=== PATIENT | male | born 1955 | race Caucasian/White ===

== ENCOUNTER → 2022-08-13 10:06 | Outpatient (BNVA) | payer MEDICARE, SELFPAY | PROVIDERS: PCP Internal Medicine; Visit Provider Anesthesiology | DX: M96.1 Postlaminectomy syndrome, not elsewhere classified (principal); G89.4 Chronic pain syndrome | CPT/HCPCS: 99202 ==

== ENCOUNTER → 2022-09-01 11:11 | Outpatient (BNVA) | payer MEDICARE, SELFPAY | PROVIDERS: PCP Internal Medicine; Visit Provider Anesthesiology | DX: G89.4 Chronic pain syndrome (principal); M96.1 Postlaminectomy syndrome, not elsewhere classified | CPT/HCPCS: 99212 ==

== ENCOUNTER 2022-10-07 05:50 | Outpatient (REF) | payer MEDICARE, SELFPAY ==
--- NOTE | ~2022-10-07 | FL_ITS ---
EXAMINATION: XR FLUOROSCOPY WITH IMAGES CLINICAL INFORMATION: Chronic pain syndrome COMPARISON: None available. TECHNIQUE: Fluoroscopy Supervised By: Dr. Tashi Babin. Fluoroscopy Time: 0.4 minutes. Cumulative Dose: 7.03 mGy. DAP: 1.91 Gycm2. Images: 3. FINDINGS: Images demonstrate patient be status post previous lumbar spine intervention with pedicle screws and connecting rods. There appears to be a fracture of the left L3 screw which may be acute or chronic as we do not have any previous imaging on this patient for comparison. A needle is seen with contrast about the left lateral aspect of the left L5-S1 disc space. FL/FL guidance in treatment room IMPRESSION: Intraoperative fluoroscopy for pain management procedure. Fractured screw left L3 pedicle screw
== END 2022-10-07 05:51 | disposition home or self-care (01) ==
LOC: CF 05:50
PROVIDERS: Visit Provider Anesthesiology
DX: G89.4 Chronic pain syndrome (principal); M96.1 Postlaminectomy syndrome, not elsewhere classified
CPT/HCPCS: 64483; 64484; J3301

== ENCOUNTER → 2022-11-17 11:08 | Outpatient (BNVA) | payer MEDICARE, SELFPAY | PROVIDERS: PCP Internal Medicine; Visit Provider Anesthesiology | DX: G89.4 Chronic pain syndrome (principal); M96.1 Postlaminectomy syndrome, not elsewhere classified | CPT/HCPCS: 99212 ==

== ENCOUNTER 2023-03-10 06:04 | Outpatient (REF) | payer MEDICARE, SELFPAY ==
--- NOTE | ~2023-03-10 | FL_ITS ---
EXAMINATION: XR FLUOROSCOPY WITH IMAGES CLINICAL INFORMATION: Post laminectomy syndrome, not elsewhere classified. COMPARISON: None available. TECHNIQUE: Fluoroscopy Supervised By: Dr. Tashi Babin. Fluoroscopy Time: 0.3 minutes. Cumulative Dose: 6.16 mGy. DAP: 1.64 Gycm2. Images: 2. FINDINGS: Images demonstrate needle placement and contrast injection adjacent to the left lateral L5 vertebrae. FL/FL guidance in treatment room IMPRESSION: Cross B guidance for pain management procedure.
== END 2023-03-10 06:05 | disposition home or self-care (01) ==
LOC: CF 06:04
PROVIDERS: Visit Provider Anesthesiology
DX: M96.1 Postlaminectomy syndrome, not elsewhere classified (principal)
CPT/HCPCS: 64483; J3301

== ENCOUNTER 2023-03-10 09:52 | Outpatient (AMB) | payer MEDICARE, SELFPAY ==
--- NOTE | 2023-03-10 09:51 | MHC.OFFVIS ---
Intake Vital Signs 03/10/23 13:47 03/10/23 13:53 Height 5 ft 10 in 5 ft 10 in Weight 190 lb 190 lb BMI 27.3 27.3 BP 136/68 132/78 Blood Pressure Location Lt brachial Lt brachial Position Sitting Sitting Respiration 16 16 Pulse 66 92 Pulse Source Pulse Oximeter Pulse Oximeter Pulse Oximetry (%) 99 96 Oxygen Delivery Method Room Air Room Air Comment pre-op post-op Intake Visit Reasons: Left TFESI L5-S1 Allergies No Known Allergies Allergy (Verified 03/10/23 13:53) [facility] Medical History (Updated 08/13/22 @ 11:22 by Tashi Babin MD) Compression fracture of lumbar vertebra Depression Esophageal hiatal hernia Epilepsy Reflux esophagitis Type 2 diabetes mellitus Chronic back pain Surgical History (Updated 08/13/22 @ 10:42 by Anita Elkins RN) H/O lumbosacral spine surgery Physical Exam Vital Signs: Last Vital Signs Pulse 92 03/10/23 13:53 Resp 16 03/10/23 13:53 BP 132/78 03/10/23 13:53 Pulse Ox 96 03/10/23 13:53 Oxygen Delivery Method Room Air 03/10/23 13:53 BMI result Body Mass Index 27.3 Assessment & Plan Assessment & Plan (1) Failed back syndrome: Code(s): M96.1 - Postlaminectomy syndrome, not elsewhere classified Plan: LEFT Transforaminal L5-S1 epidural steroid injection Informed consent was thoroughly explained to the patient before the procedure.? The patient came to the operating room.? He was positioned prone on operating table with a pillow under his abdomen.? Time-out was performed delineating correct site and side of the procedure, nature of the injection, name and date of of the patient. The lower back of the patient was prepped with ChloraPrep and draped with sterile utility towels.? C-arm was brought over the operating field and sq picture of L5 vertebra was demonstrated on the screen.? Significant hardware occupying not only L3 and L2 vertebta with pedicular scews but also L4-L5 pedicular bilateral screws and rods were noted in the back. An attempt to perform L5- S1 TFESI was made as below: The left side was chosen as the side of the injection.? Tilting machine ipsilateral to the left at the level of L5 the most prominent picture of the left pedicle was obtained on the screen.?L5 pedicular screw was not completely shielding the image of the left pedicle and 3 mm below the level of the lowest point of the pedicle projection to the skin small amount of lidocaine 1% 3-4 cc was injected to anesthetize the skin.? After that 5 in 22 gauge Quincke point needle was inserted through the skin wheal and was advanced to the L5-S1 foramina on anterior posterior and oblique views intermittently.T when the needle reached the foramina on the lateral view the contast was injected and epidural spread of the contrast was seen. Treatment mixture of lidocaine 1% 3 mls and kenalog 40 mg was injected. Needle was removed. sterile bandaid was applied.. (2) Chronic pain syndrome: Code(s): G89.4 - Chronic pain syndrome Plan This patient is suffering from felt back or postlaminectomy syndrome. He received injections which were very instrumental for his pain control from Dr. Lozano. I offered this patient to repeat the injection doctor rising of performed for him. I will schedule him for transforaminal L4-5 and /or L5-S1 whichever side would be appearing better for needle insertion. However if this injection will not be helpful attempts can be made to treat this pain as failed back syndrome with spinal cord stimulator versus peripheral nerve stimulator. Possibility of intrathecal pump can be considered however the hardware insertion could be difficult. The hardware in his back extends to T10 vertebra therefore it is possible that spinal cord stimulator trial and insertion also will be difficult to perform. Patient was informed about it. Orders: Orders FL guidance in treatment room Today M96.1 - Postlaminectomy syndrome, not elsewhere classified Coding Level of Care Code Procedure Only Diagnoses Failed back syndrome M96.1 Chronic pain syndrome G89.4
[2023-03-10 13:47] VITALS: BP 136/68; PULSE 66; RESP 16; O2SAT 99; BMI 27.3
[2023-03-10 13:53] VITALS: BP 132/78; PULSE 92; RESP 16; O2SAT 96; BMI 27.3
== END 2023-03-10 10:49 | disposition home or self-care (01) ==
LOC: HO.PMCPRC 09:52
PROVIDERS: PCP Internal Medicine; Visit Provider Anesthesiology
DX: M96.1 Postlaminectomy syndrome, not elsewhere classified (principal); G89.4 Chronic pain syndrome
CPT/HCPCS: 64483

== ENCOUNTER 2023-03-31 09:59 | Outpatient (REF) | payer MEDICARE, SELFPAY | END 2023-03-31 10:00 | disposition home or self-care (01) | LOC: HO.XRAY 09:59 | PROVIDERS: PCP Internal Medicine; Visit Provider Anesthesiology | DX: M96.1 Postlaminectomy syndrome, not elsewhere classified (principal); G89.4 Chronic pain syndrome | CPT/HCPCS: 72070; 72100 ==

== ENCOUNTER 2023-04-15 09:58 | Outpatient (AMB) | payer MEDICARE, SELFPAY ==
--- NOTE | 2023-04-15 10:07 | MHC.OFFVIS ---
Intake Vital Signs 04/15/23 11:06 Height 5 ft 10 in Weight 182 lb BMI 26.1 BP 140/79 H Blood Pressure Location Rt brachial Position Sitting Respiration 14 Pulse 66 Pulse Source Pulse Oximeter Pulse Oximetry (%) 97 Oxygen Delivery Method Room Air Intake Visit Reasons: S/p TFESI L5-S1 03/10/23 & procedure discussion Allergies No Known Allergies Allergy (Verified 04/15/23 11:07) HPI HPI Comments History of Present Illness Details Sterling is back in my office after left transforaminal epidural steroid injection which was performed on 03/10/2023. He reports excellent pain relief. He reports better mobility better activities of daily living better social interactions. He reports that injection this time was in better than injection which was performed on 10/07/2022. It has been 45 days since the injection. He reports excellent pain relief, he reports better mobility, better social interactions, better activities of daily living. He reports that pain radiating down to the left lower extremities is all but gone. He has extensive hardware in his lumbar spine and it appears to be that L3 left screw is fractured. The procedure itself was very difficult. I was able to go around left S1 superior articular process and introduce my needle into the patient's foramina L5-S1. very happy about this patient's improvement on the injection because the procedure was very difficult. The procedure can be repeated with care, I am not sure how significant the L3 screw fracture is and how much these element contributes to the patient's pain. Possibility exist to send him to a neurosurgical consult about this finding. For now we agreed that we will not schedule him for the follow-up appointment. I recommended him to give us a call when the pain will come back I do not mind to do this injections 3 to 4 times a year. However if pain relief will start to be shorter we would need to return our discussion to spinal cord stimulation. Prior: We received information from the [facility] in regarding of the the injections the patient received from Dr. Lozano, according to the records he received transforaminal L4-5 epidural steroid injections on the right as well as on the left.? He remember significant pain improvement after injection on the left.? He wants me to perform left-sided injection because most of the pain is on the left.? The dictation of the MRI is as below with extensive hardware from T10-L3.? I will schedule this patient for left-sided transforaminal epidural steroid injection L4-5 L5-S1 in the attempt to alleviate his pain.? I informed this patient that the procedure due to postoperative changes might be very difficult to perform.? However I would not mind to try.? We discussed neuromodulation with him today I think of epidural steroid injection will fail spinal cord stimulation versus intrathecal drug delivery system pain pump would be the only options for this patient. ?this pain started many years ago when he fell? and received a fracture in his lumbar spine.? Surgery was performed which she involved T10 through L5 rods placement and pedicular screws for stabilization.? He actually had surgery performed on his lower back twice because of the for 1st surgery complicated by the screw fractures.? Currently he does have yet another screw fractures in his hardware.? ? He received multiple imaging studies of his lower back the last MRI dictated is as below.? The CT scan of the wall lower back dictation also available in the chart.? He had physical therapy in the past which was performed for him with no pain relief.? Dr. Lozano performed some sort of the injection patient reports 1 needle went into his back on the side of the spine which resulted in pain improvement for 1 year [facility] Medical History (Updated 04/16/23 @ 08:35 by Tashi Babin MD) Compression fracture of lumbar vertebra Depression Esophageal hiatal hernia Epilepsy Reflux esophagitis Type 2 diabetes mellitus Chronic back pain Surgical History (Updated 08/13/22 @ 10:42 by Anita Elkins RN) H/O lumbosacral spine surgery Review of Systems Const All systems reviewed & are unremarkable except as noted in HPI and below ENT Reports Normal hearing present Neuro Reports Normal hearing present, Denies Abnormal speech present and Denies Sensory deficit (Neuro) Physical Exam Vital Signs: Last Vital Signs Pulse 66 04/15/23 11:06 Resp 14 04/15/23 11:06 BP 140/79 H 04/15/23 11:06 Pulse Ox 97 04/15/23 11:06 Oxygen Delivery Method Room Air 04/15/23 11:06 BMI result Body Mass Index 26.1 Const General: no acute distress Orientation/consciousness: patient oriented x3 Eyes General: appearance normal, both eyes and all related structures Pupils: Equal, round and reactive pupils present EOM: EOMs intact bilaterally Neck Neck: Yes full ROM Chest Chest palpation & inspection: normal inspection of the chest Resp Effort & Inspection: normal respiratory effort, able to speak in complete sentences, normal respiratory pattern, no audible wheezes and no cough Cardio Jugular venous distension: no JVD GI Inspection: Yes normal to inspection Back/Spine/Pelvis Other: There is very extensive scar in the projection of the lower thoracic spine all the way down to the lower lumbar spine. The scar is very well-healed. Are also 2 additional scars on the side of the lumbar spine delineating previous L5-S1 fusion as well. SLR is negative bilaterally. Jg test is negative bilaterally. Lateral hip rotation is negative bilaterally for the pain increase. Able to stand on bilateral heels and bilateral tiptoes but reports weakness on the left with standing on bilateral tiptoes. Denies numbness in the lower extremities denies Valsalva maneuver bringing lower back pain increase. Neuro General: patient oriented x3 and gait normal Cranial nerves: Yes Equal, round and reactive pupils present and Yes Normal hearing present Speech: No Abnormal speech present Gait exam (Neuro): Normal gait present Motor exam (neuro): 5/5 motor strength present throughout Sensory Exam: No Sensory deficit (Neuro) Extrem General: No pedal edema Psych Speech and movement: Normal speech and movement present Affect: normal affect Attitude: cooperative Thought process: Normal thought process present Thought content: Normal thought content present Insight: Good insight present (Psych) Judgement: Good judgement present (Psych) Assessment & Plan Assessment & Plan (1) Failed back syndrome: Code(s): M96.1 - Postlaminectomy syndrome, not elsewhere classified (2) Chronic pain syndrome: Code(s): G89.4 - Chronic pain syndrome (3) Radiculopathy, lumbar region: Code(s): M54.16 - Radiculopathy, lumbar region Plan This patient is suffering from fail back or postlaminectomy syndrome. He received injections which were very instrumental for his pain control from Dr. Lozano. I performed left-sided L5-S1 transforaminal epidural steroid injection on 03/10/2023 and before that on 10/07/2022 with excellent results. Patient is very grateful. The injection was very difficult for me to perform, but I was able to advance the needle into L5-S1 left foramina around the superior articular process of S1, the needle ended up in the disc L5-S1 but was withdrawn slightly and injected with contrast demonstrating left epidural spread of the contrast. Injection of the local anesthetic and steroid was performed. Patient is recommended to give us a call when pain will come back. He promised me to take precautions and not to perform any heavy lifting or sharp bending and torso twisting with considerations of fractured screw in his back. Nothing can be done for him from neurosurgical standpoint. When his pain will come back he will give us a call and schedule the another injection as above. Coding Level of Care Code Est Pt Level 3 (13121) Diagnoses Failed back syndrome M96.1 Chronic pain syndrome G89.4 Radiculopathy, lumbar region M54.16
[2023-04-15 11:06] VITALS: BP 140/79; PULSE 66; RESP 14; O2SAT 97; BMI 26.1
== END 2023-04-15 10:43 | disposition home or self-care (01) ==
PROVIDERS: PCP Internal Medicine; Visit Provider Anesthesiology
DX: M96.1 Postlaminectomy syndrome, not elsewhere classified (principal); G89.4 Chronic pain syndrome; M54.16 Radiculopathy, lumbar region
CPT/HCPCS: 99213

== ENCOUNTER → 2023-04-15 09:58 | Outpatient (BNVA) | payer MEDICARE, SELFPAY | PROVIDERS: PCP Internal Medicine; Visit Provider Anesthesiology | DX: M54.16 Radiculopathy, lumbar region (principal); M96.1 Postlaminectomy syndrome, not elsewhere classified; G89.4 Chronic pain syndrome | CPT/HCPCS: 99212 ==